=== PATIENT | female | born 1950 | race Caucasian/White ===

== ENCOUNTER 2017-06-02 15:21 | Emergency (ER) | payer OTHER ==
[~2017-06-02] VITALS: Ht 142.2 cm; Wt 73.5 kg
[~2017-06-02 15:21] MED LIST: ALEN70TA74 PO; ASPI81CT95 PO; CALC-575 PO; GLIP2.5T2 PO; LEVO0.0712 PO; LISI40TA4 PO; LOSA50TA39 PO; METF10002 PO; SIMV20TA6 PO
[2017-06-02 15:27] VITALS: BP 177/91
--- NOTE | 2017-06-02 15:27 | NUR ---
PT SENT TO ER LOBBY TO WAIT FOR X-RAY.
--- NOTE | 2017-06-02 17:23 | NUR ---
PT AMBULATED TO BED 2
--- NOTE | 2017-06-02 17:26 | NUR ---
PATIENT PRESENTS TO ED WITH C/O LEFT NECK PAIN SINCE LAST NIGHT; DENIES ANY INJURY OR TRAUMA; HX: HTN, DM, HIGH CHOLESTEROL, HYPOTHYROID TOOK X2 NAPROSYN; DENIES N/V/D; SKIN IS PINK/WARM/DRY; AAOX4 WITH EVEN AND STEADY GAIT; LUNGS CLEAR BL; HR EVEN AND REGULAR; PT DENIES ANY FEVER, CP, SOB, OR COUGH AT THIS TIME; PATIENT STATES PAIN OF 8/10 AT THIS TIME; VSS; PATIENT POSITIONED FOR COMFORT; HOB ELEVATED; BEDRAILS UP X2; BED DOWN. ER MD MADE AWARE OF PT STATUS.
[2017-06-02 18:22] VITALS: BP 141/75
--- NOTE | 2017-06-02 18:22 | NUR ---
Patient discharged with v/s stable. Written and verbal after care instructions given and explained. Patient alert, oriented and verbalized understanding of instructions. Ambulatory with steady gait. All questions addressed prior to discharge. ID band removed. Patient advised to follow up with PMD. Rx of TRAMADOL given. Patient educated on indication of medication including possible reaction and side effects. Opportunity to ask questions provided and answered. NO DIZZINESS, HEADACHE OR NAUSEA
== END 2017-06-02 18:22 | disposition home or self-care (01) ==
LOC: MED 15:21
DX: M54.2 Cervicalgia (principal); E11.9 Type 2 diabetes mellitus without complications; I10 Essential (primary) hypertension; Z79.82 Long term (current) use of aspirin; Z79.899 Other long term (current) drug therapy
CPT/HCPCS: 70360; 72125; 99284

== ENCOUNTER 2018-11-25 07:33 | Observation (INO) | payer OTHER ==
[~2018-11-25] VITALS: Ht 152.4 cm; Wt 74.4 kg
[~2018-11-25 07:33] MED LIST changes: -ALEN70TA74 PO; +FOS70 PO; -LOSA50TA39 PO; +LOSA50TA66 PO; +METF-1022 PO; -METF10002 PO
[2018-11-25 07:39] VITALS: BP 148/75
--- NOTE | 2018-11-25 07:39 | NUR ---
PT BIBA C/O CP X20 MIN. PER EMS PT EXPERIENCING UNPROVOKED NON-RADIATING SHARP 10/10 CP. EMS GAVE 324 ASPIRIN, 2 NITRO, AND STARTED 20G IV IN RAC, INTACT AND PATENT. PT DENIES PAIN AT THIS TIME. PT DENIES SOB OR N/V. PERRLA BRISK 3 MM, FULL CLEAR SPEECH, NO FACIAL ASSYMETRY, EQUAL BILATERAL STRENGTH TO UPPER AND LOWER EXTREMITIES. 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 HOB UP. BED SIDE RAILS UP X1. ON LOW BED POSITION, LOCKED. ER TO EVALUATE PT.
--- NOTE | 2018-11-25 07:42 | NUR ---
LAB PROFESSOR OF ART HISTORY AT BEDSIDE FOR BLOOD DRAW
--- NOTE | 2018-11-25 07:50 | NUR ---
RADIOLOGY AT BEDSIDE FOR CHEST X-RAY
[2018-11-25 07:55] LABS: BASOPHILS % (AUTO) 0.3 % (0.0-2.0); EOSINOPHILS # (AUTO) 0.1 K/uL (0-0.4); EOSINOPHILS % (AUTO) 1.7 % (0.0-4.0); HEMATOCRIT 34.1 % (36-48); HEMOGLOBIN 11.2 g/dL (12.0-16.0); LYMPHOCYTES # (AUTO) 1.1 K/uL (2.5-16.5); LYMPHOCYTES % (AUTO) 25.6 % (20.5-51.1); MEAN CORPUSCULAR HEMOGLOBIN 29 pg (27-31); MEAN CORPUSCULAR HGB CONC 33 g/dL (33-37); MEAN CORPUSCULAR VOLUME 89.3 fL (80-94); MONOCYTES # (AUTO) 0.4 K/uL (0.8-1.0); MONOCYTES % (AUTO) 9.3 % (1.7-9.3); NEUTROPHILS # (AUTO) 2.8 K/uL (1.8-7.7); NEUTROPHILS % (AUTO) 63.1 % (42.2-75.2); PLATELET COUNT (AUTO) 225 K/uL (140-450); RED BLOOD CELL COUNT(AUTO) 3.82 MIL/uL (4.20-5.40); RED CELL DISTRIBUTION WIDTH 12.8 % (11.6-13.7); WHITE BLOOD COUNT (AUTO) 4.4 K/uL (4.8-10.8)
[2018-11-25 08:02] LABS: ANION GAP 14.1 (8-16); CARBON DIOXIDE 26.8 mmol/L (21-32); CREATININE 1.1 mg/dL (0.6-1.3); POTASSIUM 4.9 mmol/L (3.5-5.1)
--- NOTE | 2018-11-25 08:07 | NUR ---
DR AYALA AT BEDSIDE FOR PT EVALUATION
[2018-11-25 08:08] LABS: ALBUMIN 3.3 g/dL (3.4-5.0); TOTAL BILIRUBIN 0.3 mg/dL (0.0-1.0)
--- NOTE | 2018-11-25 08:13 | NUR ---
PT WAS PUT ON THE BEDPAN FOR URINE SPECIMEN. DAUGHTER AT BEDSIDE.
[2018-11-25] MEDS ORDERED: ACETAMINOPHEN 325 MG TAB PO PRN ×4 (08:30→09:15)
[2018-11-25] MEDS ORDERED: NACL 0.9% 1,000 ML IV SCH ×2 (08:30→09:00)
[2018-11-25] MEDS ORDERED: HYDROcodone/APAP 5/325 MG 1 TAB TAB PO PRN ×4 (08:30→09:15)
[2018-11-25] MEDS ORDERED: NITROGLYCERIN 0.4 MG TAB SL PRN ×4 (08:35→09:15)
--- NOTE | 2018-11-25 08:40 | NUR ---
DR HASSAN AT BEDSIDE FOR PT EVALUATION
[2018-11-25] MEDS ORDERED: cefTRIAXone 1,000 MG VIAL ONE (08:42)
[2018-11-25] MEDS ORDERED: RANI300S3 PO (08:49)
--- NOTE | 2018-11-25 08:50 | NUR ---
BLOOD DRAW DONE ORDERED FOR 2 SETS BLOOD CULTURE. CALLED LAB FOR BIOLOGY DEPARTMENT CHAIR
[2018-11-25 08:56] LABS: PROTHROMBIN TIME 9.6 secs (10.8-13.4)
[2018-11-25] MEDS ORDERED: ASPIRIN 81 MG TAB.CHEW PO SCH ×3 (09:00→10:00)
[2018-11-25] MEDS: NACL 0.9% 1,000 ML IV SCH (09:00)
[2018-11-25 09:06] LABS: MAGNESIUM 1.6 mg/dL (1.8-2.4); PHOSPHORUS 3.7 mg/dL (2.5-4.9); THYROID STIMULATING HORMONE 0.82 uIU/mL (0.34-3.74)
--- NOTE | 2018-11-25 09:10 | NUR ---
Patient will be admitted to care of DR LIN. Admited to TELE. Will go to room 106 A. Belongings list completed. Report to PEYTON HUTCHINSON.
[2018-11-25 09:12] LABS: APPEARANCE,URINE SL CLOUDY (CLEAR); BILIRUBIN,URINE NEGATIVE (NEGATIVE); BLOOD, URINE TRACE-I (NEGATIVE); COLOR,URINE YELLOW (YELLOW); LEUKOCYTE ESTERASE ,URINE 2+ (NEGATIVE); NITRITE, URINE POSITIVE (NEGATIVE); PH,URINE 5.5 (5.0-9.0); UGLUCOSE 1+ (NEGATIVE)
--- NOTE | 2018-11-25 09:15 | NUR ---
RECEIVED PT FROM ED NURSE MUNIR. PT IS AWAKE AND ALERT, ABLE TO AMBULATE, NOT C/O ANY CHEST PAIN AT THIS TIME, NO C/O DIZZINESS OR SOB. PT ON ROOM AIR. SKIN INTACT. TWO FAMILY MEMBERS ARE AT BEDSIDE. CLINICAL ABSTRACTOR APPLIED. IV SITE IS NOTED ON THE R AC, 20 G. CALL LIGHT GIVEN TO PT WITHIN REACH AND FAMILIARIZED PT WITH THE ROOM. WILL CONTINUE TO MONITOR. VS: BP 150/74, HR 74, O2 99, TEMP 97.8, RR 18.
[2018-11-25 09:21] LABS: BARBITURATE, URINE NEG. ng/ml (NEG <=200); BENZODIAZEPINE, URINE NEG. ng/mL (NEG <=200); CANNABINOID, URINE NEG. ng/mL (NEG <=50); COCAINE, URINE NEG. ng/mL (NEG <=300); OPIATE, URINE NEG. ng/mL (NEG <=2000); PHENCYCLIDINE SCREEN,URINE NEG. ng/mL (NEG <=25)
[2018-11-25] MEDS ORDERED: FAMOTIDINE 20 MG TAB PO SCH (10:00)
[2018-11-25] MEDS ORDERED: LISINOPRIL 20 MG TAB PO SCH (11:00)
[2018-11-25] MEDS ORDERED: DEXTROSE 50% 50 ML SYR IVP PRN (11:30)
[2018-11-25] MEDS: BLOOD GLUCOSE MONITORING 1 DEV DEV FS SCH ×3 (11:52→21:53)
[2018-11-25] MEDS: INSULIN LISPRO SLIDING SCALE 100 UNITS/ML VIAL SUBQ PRN ×3 (11:53→21:55)
[2018-11-25] MEDS ORDERED: MAG SULF 2000 MG/WATER PREMIX 50 ML IV SCH (12:00)
--- NOTE | 2018-11-25 12:01 | NUR ---
PT SEEN BY DR MARTINEZ
--- NOTE | 2018-11-25 13:45 | NUR ---
PT GETTING AN ECHOCARDIOGRAM AT THIS TIME. FAMILY IS AT BEDSIDE.
[2018-11-25 14:24] VITALS: BP 134/65
--- NOTE | 2018-11-25 14:29 | NUR ---
PT NAPPING, NO S/S OF ANY ACUTE DISTRESS, NO C/O CHEST PAIN. FAMILY MEMBERS AT BEDSIDE.
[2018-11-25 15:28] LABS: WBC,URINE 60-80 /HPF (0-5)
[2018-11-25 16:00] VITALS: BP 134/60
[2018-11-25] MEDS: metFORMIN 500 MG TAB PO SCH (17:32)
--- NOTE | 2018-11-25 19:15 | NUR ---
PT ENDORSED TO TRAVELING SECRETARY NURSE IN STABLE CONDITION.
--- NOTE | 2018-11-25 19:15 | NUR ---
RECEIVED REPORT FROM DAYS SHIFT NURSE EVANGELINA-RN AT BEDSIDE. PT RESTING IN BED, AOX4-TAJIK SPEAKING WITH FAMILY AT BEDSIDE. DISCUSSED PLAN OF CARE AND PT VERBALIZED UNDERSTANDING. NO S/S OF RESPIRATORY DISTRESS OR DISCOMFORT NOTED AT THIS TIME. BED IN LOWEST POSITION, BED BREAKS ON, BOTH SIDE RAILS UP. BEDSIDE TABLE AND CALL LIGHT ARE WITHIN REACH. WILL CONTINUE TO MONITOR.
[2018-11-25 20:00] VITALS: BP 132/57
--- NOTE | 2018-11-25 20:00 | NUR ---
VITAL SIGNS TAKEN AND TOLERATED WELL. BLOOD GLUCOSE 185- WILL ADMINISTER INSULIN COVERAGE. NO S/S OF RESPIRATORY DISTRESS OR DISCOMFORT NOTED AT THIS TIME. WILL CONTINUE TO MONITOR.
[2018-11-25] MEDS ORDERED: SIMVASTATIN 20 MG TAB PO SCH ×3 (21:00)
[2018-11-25] MEDS ORDERED: ATORVASTATIN 20 MG TAB PO SCH (21:00)
--- NOTE | 2018-11-25 21:55 | NUR ---
INSULIN COVERAGE GIVEN. LIPITOR NOT GIVEN DUE TO NOT BEING AVAILABLE. CHARGE NURSE NICCI AND UNDERGROUND MINE MACHINERY MECHANIC ELIANE GARCIA. NO S/S OF RESPIRATORY DISTRESS OR DISCOMFORT NOTED AT THIS TIME. WILL CONTINUE TO MONITOR.
[2018-11-26] VITALS: BP 132/65
--- NOTE | 2018-11-26 | NUR ---
VITAL SIGNS TAKEN AND TOLERATED WELL. NO S/S OF RESPIRATORY DISTRESS OR DISCOMFORT NOTED AT THIS TIME. WILL CONTINUE TO MONITOR.
--- NOTE | 2018-11-26 02:00 | NUR ---
PT CONTINUES SLEEPING IN BED. NO S/S OF RESPIRATORY DISTRESS OR DISCOMFORT NOTED AT THIS TIME. WILL CONTINUE TO MONITOR.
[2018-11-26 04:00] VITALS: BP 144/69
--- NOTE | 2018-11-26 04:00 | NUR ---
VITAL SIGNS TAKEN AND TOLERATED WELL. NO S/S OF RESPIRATORY DISTRESS OR DISCOMFORT NOTED AT THIS TIME. WILL CONTINUE TO MONITOR.
[2018-11-26] MEDS: NACL 0.9% 1,000 ML IV SCH (05:30)
--- NOTE | 2018-11-26 06:00 | NUR ---
SCHEDULED MEDICATIONS SYNTHROID AND GLUCOTROL NOT AVAILABLE IN [facility]. CHARGE NURSE NICCI AND GLUE CLAMP OPERATOR SHARATH GARCIA. WILL ENDORSE TO DAY SHIFT NURSE TO CONTACT PHARMACY.
--- NOTE | 2018-11-26 06:00 | NUR ---
BLOOD GLUCOSE 131- NO INSULIN COVERAGE GIVEN. NO S/S OF RESPIRATORY DISTRESS OR DISCOMFORT NOTED AT THIS TIME. WILL CONTINUE TO MONITOR.
[2018-11-26 06:13] LABS: T4 (THYROXINE) 9.4 ug/dL (4.5-12.0)
[2018-11-26] MEDS ORDERED: LEVOTHYROXINE 0.075 MG TAB PO SCH (06:30)
[2018-11-26] MEDS ORDERED: ASCO1CAP75 PO (06:39)
[2018-11-26] MEDS ORDERED: CEPH250C16 PO (06:39)
[2018-11-26] MEDS: BLOOD GLUCOSE MONITORING 1 DEV DEV FS SCH (07:02)
--- NOTE | 2018-11-26 07:20 | NUR ---
RECEIVED REPORT FROM BUSINESS SYSTEMS ARCHITECT NURSE. PATIENT SITTING DOWN IN BED WITH BREAKFAST TRAY IN FRONT. NO DISTRESS NOTED. DENIES ANY PAIN. AAOX4, CALM, COOPERATIVE, SKIN COLOR APPROPRIATE TO ETHNICITY, WARM TO TOUCH. SKIN INTACT. IV SITE INTACT, PATENT, AND INFUSING IVF PER MD ORDERS. LUNGS CTA ON ALL LOBES. RESPIRATIONS EVEN, UNLABORED, ON ROOM AIR. REVIEWED PLAN OF CARE WITH PATIENT. PATIENT VERBALIZED UNDERSTANDING. SAFETY MEASURES IN PLACE, CALL LIGHT WITHIN REACH. WILL CONTINUE TO MONITOR.
[2018-11-26] MEDS ORDERED: glipiZIDE 5 MG TAB PO SCH (07:30)
[2018-11-26 07:55] LABS: BASOPHILS % (AUTO) 0.2 % (0.0-2.0); EOSINOPHILS # (AUTO) 0.1 K/uL (0-0.4); EOSINOPHILS % (AUTO) 1.8 % (0.0-4.0); HEMATOCRIT 33.2 % (36-48); HEMOGLOBIN 11.1 g/dL (12.0-16.0); LYMPHOCYTES # (AUTO) 1.1 K/uL (2.5-16.5); LYMPHOCYTES % (AUTO) 26.7 % (20.5-51.1); MEAN CORPUSCULAR HEMOGLOBIN 30 pg (27-31); MEAN CORPUSCULAR HGB CONC 34 g/dL (33-37); MEAN CORPUSCULAR VOLUME 89.1 fL (80-94); MONOCYTES # (AUTO) 0.3 K/uL (0.8-1.0); MONOCYTES % (AUTO) 8.1 % (1.7-9.3); NEUTROPHILS # (AUTO) 2.5 K/uL (1.8-7.7); NEUTROPHILS % (AUTO) 63.2 % (42.2-75.2); PLATELET COUNT (AUTO) 236 K/uL (140-450); RED BLOOD CELL COUNT(AUTO) 3.73 MIL/uL (4.20-5.40); RED CELL DISTRIBUTION WIDTH 12.6 % (11.6-13.7)
[2018-11-26 08:00] VITALS: BP 97/52
[2018-11-26] MEDS ORDERED: glipiZIDE ER 5 MG TABER PO SCH (08:00)
[2018-11-26 08:08] LABS: CARBON DIOXIDE 27.9 mmol/L (21-32); POTASSIUM 4.9 mmol/L (3.5-5.1)
[2018-11-26 08:13] LABS: MAGNESIUM 1.8 mg/dL (1.8-2.4); PHOSPHORUS 4.7 mg/dL (2.5-4.9)
--- NOTE | 2018-11-26 08:15 | NUR ---
PATIENT HAS BEEN SCREENED AND CATEGORIZED MODERATE NUTRITION RISK. PATIENT WILL BE SEEN WITHIN 3-5 DAYS OF ADMISSION. 11/28/18-11/30/[address]
[2018-11-26] MEDS ORDERED: ASPIRIN 81 MG TAB.CHEW PO SCH ×2 (09:00)
[2018-11-26] MEDS ORDERED: FAMOTIDINE 20 MG TAB PO SCH (09:00)
[2018-11-26] MEDS ORDERED: LISINOPRIL 20 MG TAB PO SCH (09:00)
[2018-11-26] MEDS: metFORMIN 500 MG TAB PO SCH (09:05)
--- NOTE | 2018-11-26 09:13 | NUR ---
PATIENT LYING DOWN IN BED SLEEPING, AROUSABLE BY VOICE. NO DISTRESS NOTED. DENIES ANY PAIN. SCHEDULED MEDICATIONS DUE GIVEN. WILL CONTINUE TO MONITOR.
--- NOTE | 2018-11-26 10:15 | NUR ---
DISCHARGE INSTRUCTIONS PROVIDED TO PATIENT/DAUGHTER AT BEDSIDE IN PREFERRED LANGUAGE OF WELSH USING INTEGRATION LEAD #[id number]. INSTRUCTIONS ON FOLLOW-UP WITH PCP AND APRON CLEANER, NEW/CHANGED MEDICATION REGIMEN AND SIDE EFFECTS, DISEASE MANAGEMENT/PREVENTION OF ATYPICAL CHEST PAIN. ANSWERED ALL OF PATIENT/FAMILY QUESTION REGARDING DISCHARGE. IV SITE REMOVED WITH MINIMAL BLOOD AND LUMEN COMPLETELY INTACT. ID BANDS REMOVED. PATIENT TO GET DRESSED AND THEN READY TO GO HOME. WILL CONTINUE TO MONITOR.
--- NOTE | 2018-11-26 10:45 | NUR ---
PATIENT ALL DRESSED AND ALL BELONGINGS WITH PATIENT. ESCORTED PATIENT DOWN TO LOBBY VIA STEADY AMBULATION. PATIENT DISCHARGED TO HOME IN PRIVATE VEHICLE AT THIS TIME IN STABLE CONDITION.
[2018-11-26] MEDS ORDERED: PNEUMOCOCCAL VACCINE 23 MCG/0.5 ML VIAL IMVAC SCH (11:00)
== END 2018-11-26 10:45 | disposition home or self-care (01) ==
LOC: MED 07:33 → UNDOADMIN 08:34 → MTU 08:34 → MED 08:58 → MTU 16:09
PROVIDERS: ADMIT General Practice; ATTEND General Practice
DX: M94.0 Chondrocostal junction syndrome [Tietze] (principal); N39.0 Urinary tract infection, site not specified; I10 Essential (primary) hypertension; E78.5 Hyperlipidemia, unspecified; E11.9 Type 2 diabetes mellitus without complications; E83.42 Hypomagnesemia; D64.9 Anemia, unspecified; E46 Unspecified protein-calorie malnutrition; Z68.32 Body mass index [BMI] 32.0-32.9, adult; E66.9 Obesity, unspecified; K21.9 Gastro-esophageal reflux disease without esophagitis; Z23 Encounter for immunization
CPT/HCPCS: 36415; 71045; 80048; 80053; 80305; 81001; 82948; 83036; 83735; 83880; 84100; 84436; 84443; 84484; 85025; 85610; 85730; 87040; 87081; 87086; 87186; 90471; 90732; 93005; 93307; 93925; 96365; 96366; 96367; 96372; 99285; G0378; J0696; J1815; J3475; J7030; J7060; Q0092

== ENCOUNTER 2021-01-07 16:08 | Emergency (ER) | payer OTHER, MEDICAID ==
[~2021-01-07] VITALS: Ht 152.4 cm; Wt 68.0 kg
[~2021-01-07 16:08] MED LIST changes: +ASCO1CAP75 PO; -ASPI81CT95 PO; -CALC-575 PO; +CEPH250C16 PO; -FOS70 PO; -LISI40TA4 PO; +LISI40TA8 PO; -LOSA50TA66 PO; +RANI300S3 PO; +SIMV-30 PO; -SIMV20TA6 PO
[2021-01-07 16:46] VITALS: BP 186/65
--- NOTE | 2021-01-07 16:59 | NUR ---
18 GAUGE IV ESTABLISHED AND BLOOD WORK COLLECTED
--- NOTE | 2021-01-07 17:01 | NUR ---
PT TAKEN TO CT VIA INDRA
--- NOTE | 2021-01-07 17:04 | NUR ---
BLOOD WORK COLLECTED AND WALKED OVER TO LAB
[2021-01-07 17:11] LABS: BASOPHILS % (AUTO) 0.4 % (0.0-2.0); EOSINOPHILS # (AUTO) 0.1 K/uL (0-0.4); EOSINOPHILS % (AUTO) 1.7 % (0.0-4.0); HEMATOCRIT 29.6 % (36-48); HEMOGLOBIN 9.7 g/dL (12.0-16.0); LYMPHOCYTES # (AUTO) 0.9 K/uL (2.5-16.5); LYMPHOCYTES % (AUTO) 14.6 % (20.5-51.1); MEAN CORPUSCULAR HEMOGLOBIN 28 pg (27-31); MEAN CORPUSCULAR HGB CONC 33 g/dL (33-37); MONOCYTES # (AUTO) 0.4 K/uL (0.8-1.0); MONOCYTES % (AUTO) 5.9 % (1.7-9.3); NEUTROPHILS # (AUTO) 4.7 K/uL (1.8-7.7); NEUTROPHILS % (AUTO) 77.4 % (42.2-75.2); PLATELET COUNT (AUTO) 255 K/uL (140-450); RED BLOOD CELL COUNT(AUTO) 3.44 MIL/uL (4.20-5.40); RED CELL DISTRIBUTION WIDTH 13.9 % (11.6-13.7); WHITE BLOOD COUNT (AUTO) 6.1 K/uL (4.8-10.8)
--- NOTE | 2021-01-07 17:25 | NUR ---
PT RETURNED TO BED 11 FROM [place] VIA RGOLDSMITH
[2021-01-07 17:35] LABS: PROTHROMBIN TIME 9.7 secs (10.8-13.4)
[2021-01-07 17:40] LABS: ANION GAP 14.4 (8-16); CHLORIDE 97 mmol/L (98-107); GLUCOSE 91 mg/dL (74-106); SODIUM SERUM 128 mmol/L (136-145)
[2021-01-07 17:45] LABS: CREATININE 4.8 mg/dL (0.6-1.3); POTASSIUM 6.4 mmol/L (3.5-5.1); UREA NITROGEN, BLOOD 63 mg/dL (7-18)
[2021-01-07] MEDS ORDERED: NACL 0.9% 500 ML IV ONE (17:55)
--- NOTE | 2021-01-07 17:56 | NUR ---
XRAY BEDSIDE WITH PT
--- NOTE | 2021-01-07 18:02 | NUR ---
Female Computer Graphic Artist accompanied female patient for Rectal Exam FOR DR. CRUZ
--- NOTE | 2021-01-07 18:11 | NUR ---
DR. CRUZ BEDSIDE SPEAKING WITH PT DAUGHTER
[2021-01-07] MEDS ORDERED: SODIUM ZIRCONIUM CYCLOSILICATE 10 GM POWD.PACK PO ONE (18:15)
[2021-01-07] MEDS ORDERED: ALBUTEROL 0.083% 2.5 MG/3 ML NEBU INH ONE (18:15)
--- NOTE | 2021-01-07 18:19 | NUR ---
70 Y FEMALE BIB DAUGHTER C/O SLURRED SPEECH SINCE AROUND 12 PM TODAY. PT DAUGHTER STATED THAT SHE NOTICED HER MOM WAS SLURRING HER SPEECH ALONG WITH BITTING HER LIP TODAY. UPON ASSESSMENT NIHSS SCALE IS 1 WITH SLIGHT DROPPING OF R SIDE WHEN PT SMILE. BILATERAL EQUAL SUPERCHARGER REPAIR SUPERVISOR STRENGTH AND NO SIGNS OF UE/LE DROPPING. VITAL SIGNS STABLE. PT A&OX4 AND PERRLA INTACT PMH: HTN, DM NKA
--- NOTE | 2021-01-07 18:19 | NUR ---
Note undone in ED - 01/07/21 at 1846 by [email or web address] 70 Y FEMALE BIB DAUGHTER C/O SLURRED SPEECH SINCE AROUND 12 PM TODAY. PT DAUGHTER STATED THAT SHE NOTICED HER MOM WAS SLURRING HER SPEECH ALONG WITH BITTING HER LIP TODAY. UPON ASSESSMENT NIHSS SCALE IS 1 WITH SLIGHT DROPPING OF R SIDE WHEN PT SMILE. BILATERAL EQUAL METAL FRAMER STRENGTH AND NO SIGNS OF UE/LE DROPPING. VITAL SIGNS STABLE. PMH: HTN, DM NKA Addendum: 01/07/21 at 184 by [email or web address] Amendment undone in ED - 01/07/21 at 1846 by [email or web address] PT CURRENTLY A&OX4
[2021-01-07] MEDS ORDERED: ASPIRIN 325 MG TAB PO ONE (18:20)
--- NOTE | 2021-01-07 18:28 | NUR ---
CONSENT FOR CT SIGNED AND OBTAINED BEDSIDE
--- NOTE | 2021-01-07 18:29 | NUR ---
Patient to be transferred to [facility]. Is being transferred due to HIGHER LEVEL OF CARE. Receiving facility has accepting physician and available space. ER physician has signed transfer form. Patient or responsible democrat has agreed to transfer and signed form. Patient belongings inventoried and will be sent with patient. Copy of nursing notes, lab reports, EKG, Physicians Orders and X-rays to be sent with patient. Report called to PEYTON BRITO at receiving facility. [facility] ambulance service has been called for transfer. ETA is [phone].
--- NOTE | 2021-01-07 18:46 | NUR ---
RT BEDSIDE WITH PT
--- NOTE | 2021-01-07 18:47 | NUR ---
PT BP ELEVATED AND CHARTED. ER . DR CRUZ MADE AWARE AND STATED "IT WAS OKAY"
--- NOTE | 2021-01-07 19:18 | NUR ---
Pt report given to PEYTON MIRAMONTES. Transfer of care at this time.
--- NOTE | 2021-01-07 19:24 | NUR ---
REPORT RECIEVED FROM PEYTON GASTELUM FOR CONTINUITY OF CARE.
--- NOTE | 2021-01-07 19:30 | NUR ---
Patient appears to be resting comfortably in bed, ALERT AND ORIENTED X 4. Vital Signs within normal limits. Respirations even and unlabored. DAUGHTER AT BEDSIDE. REMAINS ON METAL HANDLER. IV TO RAC PATENT. WILL CONTINUE TO MONITOR.
--- NOTE | 2021-01-07 20:45 | NUR ---
PT AMBULATED TO RESTROOM AND BACK TO BED WITH STEADY AND EVEN GAIT. NO NOTED DEFICITS.
--- NOTE | 2021-01-07 21:16 | NUR ---
[facility] TRANSPORT AT BEDSIDE
[2021-01-07 21:25] VITALS: BP 160/81
--- NOTE | 2021-01-07 21:25 | NUR ---
[facility] BY [facility]
== END 2021-01-07 21:25 | disposition short-term general hospital (02) ==
LOC: MED 16:08
DX: I63.89 Other cerebral infarction (principal); I12.9 Hypertensive chronic kidney disease with stage 1 through stage 4 chronic kidney disease, or unspecified chronic kidney disease; N18.9 Chronic kidney disease, unspecified; E87.6 Hypokalemia; E87.1 Hypo-osmolality and hyponatremia
CPT/HCPCS: 36415; 70450; 70496; 70498; 71045; 80048; 84484; 85025; 85610; 93005; 94640; 99291; J7030; J7613; Q9967